=== PATIENT | male | born 1970 | race Hispanic/Latino ===

== ENCOUNTER 2017-05-26 21:31 | Emergency (ER) | payer SELFPAY ==
[~2017-05-26] VITALS: Ht 170.2 cm; Wt 70.9 kg
[~2017-05-26 21:31] MED LIST: AMOXICILLIN/PO500 MG PO; AMOXICILLIN500 MG PO; CLONIDINE0.1 MG PO; NO; NO HOME; ULTRAM50 M1 PO
[2017-05-26 22:09] LABS: HEMOGLOBIN 14.8 g/dl (14.0-18.0); IMMATURE GRANULOCYTES 0.3 % (0.0-1.0); MEAN CORPUSCULAR HGB 35.6 pG CALC (26.0-32.0); MEAN CORPUSCULAR HGB CONC 35.2 g/L CALC (32.0-36.0); NEUT# 1.79 thou/uL (1.82-7.42); RED BLOOD COUNT 4.16 mill/uL (4.70-6.10); RED CELL DISTRI WIDTH 13.2 % (11.5-15.5)
[2017-05-26 22:16] LABS: ALBUMIN 4.9 g/dL (3.2-5.0); ALKALINE PHOSPHATASE 111 u/l (38-126); ANION GAP 24 (6-22 (CALC)); BILIRUBIN, TOTAL 0.9 mg/dL (0.0-1.4); BUN 6 mg/dL (9-20); BUN/CREATININE RATIO 11 (12-20 (CALC)); CALCIUM 9.4 mg/dL (8.4-10.2); CARBON DIOXIDE 23 mmol/l (22-30); CHLORIDE 100 mmol/l (95-108); CREATININE 0.6 mg/dL (0.7-1.3); GFR > 60 ML/MIN (>=60 (CALC)); GFR FOR AFR.AMER. > 60 ML/MIN (>=60 (CALC)); GLUCOSE 89 mg/dL (75-110); POTASSIUM 4.1 mmol/l (3.5-5.1); SGOT/AST 185 u/l (17-59); SGPT/ALT 145 u/l (21-72); SODIUM 143 mmol/l (137-146); TOTAL PROTEIN 8.4 g/dL (6.3-8.2)
[2017-05-26 22:26] LABS: ETHYL ALCOHOL 409 mg/dl (0-30)
[2017-05-27 02:07] LABS: BARBITURATES NEGATIVE (NEGATIVE); COCAINE NEGATIVE (NEGATIVE); METHADONE NEGATIVE (NEGATIVE); OXCYCODONE NEGATIVE (NEGATIVE); TETRAHYDROCANNABIONOL NEGATIVE (NEGATIVE); TRICYLIC ANTIDEPRESSANTS NEGATIVE (NEGATIVE)
[2017-05-27 04:58] VITALS: BP 120/78
== END 2017-05-27 05:00 | DRG 897 ==
LOC: ED 21:31
PROVIDERS: Emergency Medicine
DX: F10.129 Alcohol abuse with intoxication, unspecified (principal); Y90.8 Blood alcohol level of 240 mg/100 ml or more

== ENCOUNTER 2020-04-28 10:55 | Emergency (ER) | payer SELFPAY ==
[~2020-04-28] VITALS: Ht 170.2 cm; Wt 72.0 kg
[2020-04-28] MEDS ORDERED: CYCLOBENZAPR5 MG PO (11:50)
[2020-04-28] MEDS ORDERED: NORVASC5 M1 PO (14:48)
[2020-04-28 15:37] VITALS: BP 208/131
== END 2020-04-28 15:45 | disposition home or self-care (01) | DRG 552 ==
LOC: ED 10:55
DX: M54.5 Low back pain (principal); I10 Essential (primary) hypertension; F17.210 Nicotine dependence, cigarettes, uncomplicated

== ENCOUNTER 2022-03-27 13:22 | Inpatient (IN) | payer OTHER ==
[~2022-03-27] VITALS: Ht 170.2 cm; Wt 68.0 kg
[2022-03-27] VITALS (35 sets, daily range): BP systolic 113–198; BP diastolic 81–165
[~2022-03-27 13:22] MED LIST changes: +CYCLOBENZAPR5 MG PO; +NORVASC5 M1 PO
--- NOTE | 2022-03-27 13:40 | NUR ---
PT TO ROOM WITH SO X1;
[2022-03-27 14:00] LABS: HEMATOCRIT 37.4 % (39.0-50.0); HEMOGLOBIN 12.9 g/dl (14.0-18.0); IMMATURE GRANULOCYTES 0.2 % (0.0-5.0); MEAN CELL VOLUME 98.2 fL CALC (80.0-100.0); MEAN CORPUSCULAR HGB 33.9 pG CALC (26.0-32.0); MEAN CORPUSCULAR HGB CONC 34.5 g/dL CAL (32.0-36.0); NEUT# 3.55 thou/uL (1.82-7.42); RED BLOOD COUNT 3.81 mill/uL (4.70-6.10); RED CELL DISTRI WIDTH 12.6 % (11.5-15.5)
[2022-03-27] MEDS ORDERED: LISINOPRIL10 MG PO (14:03)
--- NOTE | 2022-03-27 14:10 | NUR ---
PATIENT ALERT AND ORIENTED X3, DENIES ANY CURRENT HALLUCINATION. PATIENT IS COOPERATIVE, REPORTS HAVING PAIN TO CHEST DUE TO BEING TASED PRIOR TO ARRIVAL. NOTED TO HAVE PUNCTURE VILLALOBOS ON CHEST. OFFICER AT BEDSIDE
[2022-03-27 14:12] LABS: ALBUMIN 4.6 g/dL (3.2-5.0); ALKALINE PHOSPHATASE 82 u/l (38-126); BILIRUBIN, TOTAL 0.8 mg/dL (0.0-1.4); BUN 8 mg/dL (9-20); BUN/CREATININE RATIO 12 (12-20 (CALC)); CHLORIDE 94 mmol/l (95-108); CREATININE 0.7 mg/dL (0.7-1.3); ETHYL ALCOHOL 0 mg/dl (0-30); GFR FOR AFR.AMER. > 60 ML/MIN (>=60 (CALC)); GFR OTHER RACES > 60 ML/MIN (>=60 (CALC)); LIPASE 95 u/l (23-300); SGOT/AST 273 u/l (17-59); TOTAL PROTEIN 8.2 g/dL (6.3-8.2)
[2022-03-27 14:19] LABS: ANION GAP 22 (6-22 (CALC)); CARBON DIOXIDE 16 mmol/l (22-30); SODIUM 129 mmol/l (137-146)
--- NOTE | 2022-03-27 15:05 | NUR ---
PATIENT CLEANED OF LARGE INCONTINENCE
--- NOTE | 2022-03-27 15:20 | NUR ---
[facility] NURSE CALLS FOR UPDATED. INFORMED PATIENT IS NOT MEDICALLY CLEARED DUE TO RECEIVING LARGE DOSE OF VERSED AND ABNORMAL LABS
--- NOTE | 2022-03-27 15:29 | NUR ---
PATIENT SCREAMING AND YELLING STATING OFFICER IS ATTEMPTING TO HARM HIM. OFFICER HOLDING PATIENT DOWN, URINAL NOTED TO BE ON FLOOR WITH URINE POOLED ON FLOOR. OFFICER NOTED TO BE WET. OFFICER REPORTS PATIENT USED URINAL AND THEN PROCEED TO THROUGH URINAL AT HIM. AT BEDSIDE. VERBAL ORDERS TO GIVE VERSED IV 4 MG X2. NEW OFFICER AT BEDSIDE. PATIENT NOW RESTING WITH EYES CLOSED.
[2022-03-27 15:43] LABS: URINE BILIRUBIN - DIPSTICK NEGATIVE (NEGATIVE); URINE BLOOD DIPSTICK TRACE-INTACT (NEGATIVE); URINE COLOR YELLOW; URINE GLUCOSE - DIPSTICK 500 mg/dL (NEGATIVE); URINE KETONE NEGATIVE (NEGATIVE); URINE LEUK ESTERASE NEGATIVE (NEGATIVE); URINE PROTEIN - DIPSTICK NEGATIVE (NEG-TRACE); URINE SPECIFIC GRAVITY <=1.005; URINE UROBILINOGEN - DIPSTICK 0.2 E.U./dL (0.2)
--- NOTE | 2022-03-27 15:43 | NUR ---
PATIENT REPOSITIONED AND O2 APPLIED
[2022-03-27 15:45] LABS: URINE NITRITE - DIPSTICK NEGATIVE (Negative)
--- NOTE | 2022-03-27 16:00 | NUR ---
PATIENT PULLING OFF PULSE OX, PATIENT REORIENTED AND ASKED TO CEASE ACTION.
--- NOTE | 2022-03-27 16:32 | NUR ---
PATIENT REMOVED O2 MONITOR FROM FINGER, STATES "YOU SCARED THE SQUIDS AWARE." GIVEN URINAL PER SALOMÓN. REORIENTED TO SITUATION. OFFICER CONTINUES AT BEDSIDE.
--- NOTE | 2022-03-27 17:05 | NUR ---
PATIENT TOSSES URINE FILLED URINAL ON FLOOR. PATIENT REORTIENTED TO SITUATION AND CLEANED
--- NOTE | 2022-03-27 18:05 | NUR ---
pt received to ICU bed 2 via stretcher accompanied by A YASMANY Adams and DCS officer; transferred to bed; bedside report received
--- NOTE | 2022-03-27 18:15 | NUR ---
Admission Note Report Given to: YASMANY EASLEY Transported by: Wheelchair X Stretcher Transported with: X Nurse Transporter X Patent IV X O2 X Day [employer] Unit Leader Location: X ICU MS2 PATIENT TO ICU 3 ACCOMPANIED BY DCSO. BEDSIDE REPORT GIVEN, CARE RELINQUISHED
--- NOTE | 2022-03-27 18:20 | NUR ---
pt awake in bed; no apparent distress noted; admission assessment completed at this time; pt alert and oriented; denies pain; no n/v noted; resp even and unlabored; lungs clear; skin color wnl; ra; hr reg; strong pulses; no edema noted; sr on monitor; abd soft with bs present; no bm noted per gag writer; pt admits to voiding without complication; no urine to inspect at this time; urinal at bedside; #16 saline locked to rfa; #18 patent to lfa with ivf infusing without complication; no redness or edema noted at site; puncture wounds noted to upper abd/chest wall from taser used per rn manager department TRAVEL JOURNALIST to er; pt cuffed via bilat ankles and bilat wrist; osvaldo hose placed; plan of care/ meds explained; meal provided; call light within reach
--- NOTE | 2022-03-27 19:00 | NUR ---
BEDSIDE REPORT RECEIVED FROM Matthew AYALA RN. CARE OF PT ASSUMED AT THIS TIME. DINNER TRAY DELIVERED. PT HANDCUFFED IN BED WITH RICCARDO AT BEDSIDE.
--- NOTE | 2022-03-27 20:14 | NUR ---
DR. MEREDITH CALLED AND MADE AWARE PT IS HAVING VISUAL HALLUCINATIONS, PT STATED THEIR ARE "BIRDS AND KNIFES ON THE CEILING" AND PT HAS BECOME INCREASINGLY RESTLESS AND AGITATED AND HAS PULLED OFF MONITOR, PULLED OUT HIS IV SITES AND IS ATTEMPTING TO "REMOVE HIS SHACKLES AND HANDCUFFS". PT HAS ALREADY RECEIVED SCHEDULED LIBRIUM AND PRN ATIVAN DOSES, SEE E-MAR. ORDERS RECEIVED FOR ADDITIONAL ATIVAN IV DOSE AND AN INCREASE IN FREQUENCY TO SCHEDULED LIBRIUM AND PRN ATIVAN.
--- NOTE | 2022-03-27 21:07 | NUR ---
PT'S D/T SYMPTOMS ARE DR. SOLIMAN, ED PHYSICIAN AT BEDSIDE TO EVAL FOR INTUBATION. DR. SOLIMAN RECCOMENDS ATIVAN GTT INSTEAD OF INTUBATION. SPEAKS WITH DR. MEREDITH. DR. MEREDITH ORDERS ATIVAN GTT.
--- NOTE | 2022-03-27 23:00 | NUR ---
IV SITES X3 ESTABLISHED. L-FA 20G X1 ATTEMPT BY Nikki ESTRELLA RN L-FA 18G X1 ATTEMPT BY Nikki ESTRELLA RN L-AC 18G X 1 ATTEMPT BY Nikki MERLOS RN ORDER RECEIVED FOR YEUNG INSERTION BY DR. MEREDITH 18 FR. YEUNG INSERTED, ASEPTIC TECHNIQUE MAINTAINED.
--- NOTE | 2022-03-27 23:09 | NUR ---
ATIVAN GTT AT 8MG/HR AND PT REMAINS RESTLESS AND WITH SEVERE TREMOR. ORDER FOR INTUBATION RECEIVED. PT INTUBATED BY Nikki MALIK CRNA. ET 8.0 23cm AT THE LIP. SEE Nikki EATON CRNA PROGRESS NOTES. Glenda AMOS LOSS PREVENTION AND SAFETY MANAGER ASSISTED WITH INTUBATION. VERSED GTT INITIATED.
--- NOTE | 2022-03-27 23:55 | NUR ---
PCXR AT BEDSIDE FOR ET TUBE PLACEMENT VERIFICATION.
[2022-03-28] VITALS (97 sets, daily range): BP systolic 102–194; BP diastolic 69–125
--- NOTE | 2022-03-28 | NUR ---
PT SEEMINGLY NOT RESPONDING TO VERSED GTT, VERSED AT 10MG/H. PT IS HYPERTENSIVE AND RESTLESS. PROPOFOL GTT ORDERED.
--- NOTE | 2022-03-28 00:10 | NUR ---
CXR REPORT SHOWS ET TUBE IN SATISFACTORY POSITION.
--- NOTE | 2022-03-28 00:14 | NUR ---
B. AMOS GREEN ENERGY MARKETING ANALYST AT BEDSIDE COLLECTING ABG.
--- NOTE | 2022-03-28 00:25 | NUR ---
BED LINENS CHANGED
--- NOTE | 2022-03-28 00:55 | NUR ---
SPOKE WITH DR. MEREDITH, PROPOFOL AT 65mcg/kg/mIN AND VERSED 8mg/hr AND PT REMAINS COMBATIVE AND RESTLESS. NIBP 189/116mmHg. ALSO REPORTED SMALL AMOUNT OF BLOOD FROM OG TUBE. ORDER RECEIVED FOR FENTANYL 25mcg IV AND PROTONIX FOR GI PROPHYLAXIS. ORDER ALSO RECEIVED TO TURN TV DOWN TO 450. Glenda AMOS FRAME ALIGNER MADE AWARE.
--- NOTE | 2022-03-28 02:00 | NUR ---
PT SHOWS IMPROVEMENT AFTER DOSE OF FENTANYL, NIBP 112/75mmHg. PT NO LONGER EXHIBITS TREMORS OR RESTLESS BEHAVIOR. PT IS CALM, SEDATED, SR 70S. SPO2 100%. RR18/min. PROPOFOL DECRESED TO 60mcg/kg/min FROM 65, VERSED DECREASED TO 6MG/H
--- NOTE | 2022-03-28 02:28 | NUR ---
PROPOFOL DECREASED TO 5OMCG/KG/MIN AND VERSED TO 4MG/H. PT SEDATED, APPEARS COMFORTABLE AND IN NO DISTRESS.
--- NOTE | 2022-03-28 02:33 | NUR ---
B. AMOS NURSERY SUPERVISOR AT BEDSIDE.
--- NOTE | 2022-03-28 04:52 | NUR ---
ABG AND AM LABS COLLECTED BY Glenda AMOS RADIOLOGY TECHNICIAN. 1000ML CLEAR YELLOW URINE EMPTIED FROM YEUNG. 125ML RUST COLORED OUTPUT FROM OG. AM BEDSCALE WEIGHT 65.3 KG.
--- NOTE | 2022-03-28 04:56 | NUR ---
B. AMOS BARN BOSS DROPS FIO2 TO 25% BASED ON ABG RESULTS
[2022-03-28 05:27] LABS: HEMATOCRIT 36.4 % (39.0-50.0); IMMATURE GRANULOCYTES 0.3 % (0.0-5.0); MEAN CELL VOLUME 102.5 fL CALC (80.0-100.0); MEAN CORPUSCULAR HGB 33.8 pG CALC (26.0-32.0); NEUT# 2.13 thou/uL (1.82-7.42); RED BLOOD COUNT 3.55 mill/uL (4.70-6.10); RED CELL DISTRI WIDTH 13.1 % (11.5-15.5)
[2022-03-28 06:19] LABS: ALBUMIN 3.8 g/dL (3.2-5.0); ALKALINE PHOSPHATASE 60 u/l (38-126); BILIRUBIN, TOTAL 0.7 mg/dL (0.0-1.4); BUN 6 mg/dL (9-20); BUN/CREATININE RATIO 11 (12-20 (CALC)); CREATININE 0.5 mg/dL (0.7-1.3); GFR FOR AFR.AMER. > 60 ML/MIN (>=60 (CALC)); GFR OTHER RACES > 60 ML/MIN (>=60 (CALC)); MAGNESIUM 1.9 mg/dL (1.6-2.3); POTASSIUM 3.4 mmol/l (3.5-5.1); SGOT/AST 168 u/l (17-59); TOTAL PROTEIN 6.7 g/dL (6.3-8.2)
[2022-03-28 06:22] LABS: ANION GAP 12 (6-22 (CALC)); CARBON DIOXIDE 21 mmol/l (22-30); CHLORIDE 110 mmol/l (95-108); SODIUM 140 mmol/l (137-146)
--- NOTE | 2022-03-28 07:20 | NUR ---
pt intubated and sedated; no apparent distress noted; assessment completed at this time; perrla; yellowish, green drainage noted to eyes worse left eye; eye care/ face washed; no s/s/ facial grimaces of pain noted; no n/v noted; resp even and unlabored; lungs clear bilat; skin color wnl; vent intact and maintained with settings of AC mode, TV 450, rate 18, peep 5.0, 25% FiO2; 8.0 Fr ETT secured at the 23cm lip line; et sales to be replaced for proper oral care;o2 sat 100%; hr reg; strong pulses; no edema noted; bilat osvaldo hose intact; sb on monitor; abd soft with bs present; no bm noted per marketing underwriter; og tibe intact to LIS with brownish/red gastric output noted; placement verified; castro to gravity draining clear yellow urine; cath strap intact; #18 to lac with versed gtt, #18 to lfa with ivf, #20 to lfa with propofol gtt infusing without complication; no redness or edema noted at sites; pt repositioned to left side; plan of care/meds explained to pt and airline pilot/first officer; pt cuffed to bed via bilat ankles; will continue to monitor
--- NOTE | 2022-03-28 08:11 | NUR ---
pt intubated and sedated; no apparent distress noted; vent intact and maintained; castro to gravity; sb on monitor; officer x1 at bedside; pt remains cuffed bilat ankles to bed; will continue to monitor
--- NOTE | 2022-03-28 08:50 | NUR ---
Dr Mesa present at bedside to assess pt
--- NOTE | 2022-03-28 09:15 | NUR ---
ETT sales changed per RT at this time; oral care provided; will continue to monitor
--- NOTE | 2022-03-28 10:00 | NUR ---
intubated sedated; vent maintained; respositioned; castro to gravity; sb on monitor; guard at bedside; restraints intact; will continue to monitor
--- NOTE | 2022-03-28 12:10 | NUR ---
resting with eyes closed; facial grimaces noted; respositioned; sr on monitor; appears more restless/anxious; vent maintained; castro to gravity; iv's intact and patent; to be medicated with fentanyl; will continue to monitor
--- NOTE | 2022-03-28 13:14 | NUR ---
report/update provided to nurse Marie at [facility]
--- NOTE | 2022-03-28 14:07 | NUR ---
intubated and sedated; no apparent distress noted; vent intact and maintained; iv's intact and patent; versed at 4mg/hr; propofol at 50mcg/kg/min; no redness or edema noted at sites; sb on monitor; castro to gravity; repositioned to supine; guard at bedside; will continue to monitor
--- NOTE | 2022-03-28 16:05 | NUR ---
intubated and sedated; vent intact and maintained; no distress noted; resp even and unlabored; iv intact and patent; rass-4; propofol titrated to 45mcg/kg/min; sb on monitor; castro to gravity; repositioned to left side; oral care; officer at bedside; remains cuffed to foot of bed via bilat ankles; will continue to monitor
--- NOTE | 2022-03-28 18:00 | NUR ---
intubated and sedated; resp even and unlabored; vent maintained; castro to gravity; iv intact and patent; no redness or edema noted at sites; versed gtt at 40 mg/hr; propofol gtt at 45mcg/kg/min; facial grimacing noted; repositioned to right side; oral care provided; officer x1 at bedside
--- NOTE | 2022-03-28 19:00 | NUR ---
BEDSIDE REPORT RECEIVED FROM Matthew AYALA RN. CARE OF PT ASSUMED AT THIS TIME. PT IS INTUBATED, SEDATED, HEMODYNAMICS STABLE. RICCARDO AT BEDSIDE.
--- NOTE | 2022-03-28 20:00 | NUR ---
PHYSICAL ASSESMENT COMPLETED. SPO2 92-93% ON 02 @ 3L/M HUMIDIFIED VIA NC. SR70S ON MONITOR. RR 30. PT SOB WITH EXERTION. R-AC 20G PATENT. YEUNG SECURED TO LEG, TUBING UNKINKED AND UNOBSTRUCTED AND FLOWING TO GRAVITY WITH CLEAR YELLOW URINE DRAINING INTO BAG. TEMP 97.9. PT DENIES NEEDS AT THIS TIME. CALL MIN WITHIN REACH, AGREES TO CALL PRN. ISOLATION FOR COVID-19 MAINTAINED. BED LOCKED IN LOW POSITION WITH BEDRAILS UP X2.
--- NOTE | 2022-03-28 20:00 | NUR ---
PHYSICAL ASSESMENT COMPLETED. PT'S EYES ARE CRUSTED SHUT WITH DRY YELLOW DRAINAGE. EYES CLEANSED GENTLY WITH SALINE RINSE AND WETWASH CLOTH. ORAL CARE AND ORAL SUCTIONING COMPLETED. ET SUCTION DONE. MINIMAL CLEAR SECRETIONS. LUNGS ARE CLEAR. ETT REMAINS SECURED AT 23CM AT THE LIP. ASSIST CONTROL WITH A RR OF 18, PEEP 5, TV 450, FIO2 25%. OG SECURED. PLACEMENT VERIFIED VIA AIR BOLUS AUSCULTATION AND ASPIRATION OF STOMACH CONTENT. RECONNECTED TO LIS. PT HAS ACTIVE BOWEL SOUNDS. B/L WRIST RESTRAINTS IN PLACE AND B/L ANKLE SHACKLES IN PLACE. ALL EXTREMITIES WARM WITH GOOD CAP REFILL AND NO EDEMA. YEUNG SECURED TO LEG, TUBING UNKINKED AND UNOBSTRUCTED. DRAINING TO GRAVITY WITH BRIGHT YELLOW URINE. HUGO HOSE IN PLACE. PT IS DCSO INMATE AND RICCARDO REMAINS AT BEDSIDE. BED LOCKED IN LOW POSITION WITH BEDRAILS UP X2.
--- NOTE | 2022-03-28 20:44 | NUR ---
SPOKE WITH DR. MEREDITH REGARDING PT'S ELEVATED NIBP. CURRENTLY 170/118mmHg. NSR 70S ON SATURATOR OPERATOR. ORDER FOR PRN LABETALOL RECEIVED. SEE WRITTEN ORDER AND/OR E-MAR FOR PARAMETERS.
--- NOTE | 2022-03-28 21:07 | NUR ---
SCHEDULED MEDICATIONS ADMINISTERED. PRN LABETALOL 10MG IV ADMINISTERED. NIBP 186/125mmHg. SR 70S. SEE E-MAR.
--- NOTE | 2022-03-28 22:06 | NUR ---
NEW PROPOFOL BOTTLE INITIATED WITH TUBING CHANGE. SEE E-MAR.
--- NOTE | 2022-03-28 23:49 | NUR ---
LIBRIUM ADMINISTERED VIA OG. OGT CLAMPED/SUCTION OFF.
[2022-03-29] VITALS (98 sets, daily range): BP systolic 98–171; BP diastolic 71–118
--- NOTE | 2022-03-29 01:24 | NUR ---
B. AMOS SPECIAL EDUCATION ASSOCIATE AT BEDSIDE.
--- NOTE | 2022-03-29 03:19 | NUR ---
NEW BOTTLE OF PROPFOL INFUSING. SEE E-MAR. PT REMAINS SEDATED AND APPEARS COMFORTABLE. HEMODYNAMICS STABLE.
--- NOTE | 2022-03-29 05:30 | NUR ---
BED BATH AND LINEN CHANGE COMPLETED.
--- NOTE | 2022-03-29 05:32 | NUR ---
2,200 ML URINE EMPTIED FROM YEUNG. 50ML OUT FROM OG TUBE. AM LABS COLLECTED VIA VENIPUNCTURE. BEDSCALE WEIGHT 66.6 KG.
--- NOTE | 2022-03-29 05:40 | NUR ---
KATE COLLECTED BY Glenda AMOS RN.
--- NOTE | 2022-03-29 05:55 | NUR ---
PCXR IN ROOM.
[2022-03-29 06:22] LABS: HEMATOCRIT 38.7 % (39.0-50.0); HEMOGLOBIN 12.8 g/dl (14.0-18.0); IMMATURE GRANULOCYTES 0.1 % (0.0-5.0); MEAN CORPUSCULAR HGB 34.4 pG CALC (26.0-32.0); MEAN CORPUSCULAR HGB CONC 33.1 g/dL CAL (32.0-36.0); NEUT# 4.95 thou/uL (1.82-7.42); RED BLOOD COUNT 3.72 mill/uL (4.70-6.10); RED CELL DISTRI WIDTH 13.4 % (11.5-15.5)
[2022-03-29 07:05] LABS: ANION GAP 10 (6-22 (CALC)); BUN 2 mg/dL (9-20); BUN/CREATININE RATIO 4 (12-20 (CALC)); CARBON DIOXIDE 25 mmol/l (22-30); CHLORIDE 109 mmol/l (95-108); CREATININE 0.6 mg/dL (0.7-1.3); GFR FOR AFR.AMER. > 60 ML/MIN (>=60 (CALC)); GFR OTHER RACES > 60 ML/MIN (>=60 (CALC)); MAGNESIUM 1.8 mg/dL (1.6-2.3); POTASSIUM 3.8 mmol/l (3.5-5.1); SODIUM 141 mmol/l (137-146)
--- NOTE | 2022-03-29 07:24 | NUR ---
PT SEEN SEDATED AND INTUBATED, AT REST IN THE BED IN NO ACUTE DISTRESS. OFFICER X 1 AT BEDSIDE. PT APPROPRIATELY NOT RESPONSIVE. RESTRAINTS OFF FOR PASSIVE MOVEMENTS, RETIED. VERSED TURNED DOWN FROM 4 TO 3 MG/HR PT WELL SEDATED.
--- NOTE | 2022-03-29 10:09 | NUR ---
PT SEEN BY DR PEÑA THIS MORNING, ORDERS WEANING OF PROPOFOL AND VERSED. AT THIS POINT IN TIME VERSED IS OFF AND PROPOFOL IS AT 20 MKM. PT REMAINS UNRESPONSIVE TO VOICE AND TOUCH.
--- NOTE | 2022-03-29 12:42 | NUR ---
PT REMAINS SEDATED AND INTUBATED AFTER SHOWING EVIDENCE OF DELIRIUM TREMENS WHILE BEING WEANED FROM VERSED AND PROPOFOL. PROPOFOL IS AT 35 MKM, WHICH IS KEEPING PT MODERATELY SEDATED. NO FURTHER TREMORS NOTED.
--- NOTE | 2022-03-29 15:14 | NUR ---
PT REPOSITIONED IN BED, CONTINUES VENTED WITH PROPOFOL AT 35 MKM. NO TREMBLING SEEN WITH SEDATION AT THIS RATE.
--- NOTE | 2022-03-29 18:06 | NUR ---
PT AT 45 MKM PROPOFOL, LIGHTLY SEDATED. PT TURNED SIDE TO SIDE FOR SKIN PRESERVATION. OFFICER X 1 AT BEDSIDE.
--- NOTE | 2022-03-29 19:00 | NUR ---
BEDSIDE REPORT RECEIVED FROM Kwabena ESCALANTE RN. PT REMAINS SEDATED, INTUBATED, AND HEMODYNAMICALLY STABLE.
--- NOTE | 2022-03-29 20:00 | NUR ---
PHYSICAL ASSESMENT COMPLETED. ORAL CARE AND ORAL SUCTIONING PERFORMED. SECRETIONS ARE THICK AND PALE YELLOW, MODERATE AMOUNTS. PT TURNED/REPOSITIONED. B/L WRIST RESTRAINTS RELEASED FOR REPOSITIONING. PROPOFOL INFUSING AT 45mcg/kg/min. NO CHANGES AT THIS TIME. HEMODYNAMICS REMAINS STABLE.
--- NOTE | 2022-03-29 22:00 | NUR ---
RE-ASSESMENT COMPLETED. ASSESMENT REMAINS GROSSLY UNCHANGED. ORAL CARE AND ORAL SUCTIONING PERFORMED. SECRETIONS ARE THICK AND PALE YELLOW, MODERATE AMOUNTS. PT TURNED/REPOSITIONED. B/L WRIST RESTRAINTS RELEASED FOR REPOSITIONING. PROPOFOL INFUSING AT 45mcg/kg/min. NO CHANGES AT THIS TIME. HEMODYNAMICS REMAINS STABLE. RICCARDO REMAINS AT BEDSIDE.
[2022-03-30] VITALS (94 sets, daily range): BP systolic 112–171; BP diastolic 75–122
--- NOTE | 2022-03-30 04:00 | NUR ---
RE-ASSESMENT COMPLETED. ASSESMENT REMAINS GROSSLY UNCHANGED. ORAL CARE AND ORAL SUCTIONING PERFORMED. SECRETIONS ARE THICK AND PALE YELLOW, MODERATE AMOUNTS. PT TURNED/REPOSITIONED. B/L WRIST RESTRAINTS RELEASED FOR REPOSITIONING. PROPOFOL INFUSING AT 45mcg/kg/min. NO CHANGES AT THIS TIME. HEMODYNAMICS REMAINS STABLE. 1300ML GREEN TINGED URINE EMPTIED FROM YEUNG. 75ML TOTAL OUTPUT FROM OG. AM WEIGHT PER BEDSCALE 68KG. RICCARDO REMAINS AT BEDSIDE.
--- NOTE | 2022-03-30 04:06 | NUR ---
SIMEON ABG BY Glenda AMOS RRT.
--- NOTE | 2022-03-30 04:50 | NUR ---
AM LABS COLLECTEDD VIA VENIPUNCTURE.
--- NOTE | 2022-03-30 06:00 | NUR ---
RE-ASSESMENT COMPLETED. ASSESMENT REMAINS GROSSLY UNCHANGED. ORAL CARE AND ORAL SUCTIONING PERFORMED. SECRETIONS ARE THICK AND PALE YELLOW, MODERATE AMOUNTS. PT TURNED/REPOSITIONED. B/L WRIST RESTRAINTS RELEASED FOR REPOSITIONING. PROPOFOL INFUSING AT 45mcg/kg/min. NO CHANGES AT THIS TIME. HEMODYNAMICS REMAINS STABLE.
--- NOTE | 2022-03-30 06:03 | NUR ---
PCXR IN ROOM
[2022-03-30 07:00] LABS: HEMATOCRIT 42.8 % (39.0-50.0); HEMOGLOBIN 13.9 g/dl (14.0-18.0); MEAN CELL VOLUME 103.1 fL CALC (80.0-100.0); MEAN CORPUSCULAR HGB 33.5 pG CALC (26.0-32.0); MEAN CORPUSCULAR HGB CONC 32.5 g/dL CAL (32.0-36.0); RED BLOOD COUNT 4.15 mill/uL (4.70-6.10); RED CELL DISTRI WIDTH 13.5 % (11.5-15.5)
[2022-03-30 07:24] LABS: ALBUMIN 3.8 g/dL (3.2-5.0); ALKALINE PHOSPHATASE 75 u/l (38-126); ANION GAP 15 (6-22 (CALC)); BILIRUBIN, TOTAL 0.5 mg/dL (0.0-1.4); BUN 2 mg/dL (9-20); BUN/CREATININE RATIO 4 (12-20 (CALC)); CARBON DIOXIDE 24 mmol/l (22-30); CHLORIDE 104 mmol/l (95-108); CREATININE 0.6 mg/dL (0.7-1.3); GFR FOR AFR.AMER. > 60 ML/MIN (>=60 (CALC)); GFR OTHER RACES > 60 ML/MIN (>=60 (CALC)); MAGNESIUM 1.7 mg/dL (1.6-2.3); SGOT/AST 84 u/l (17-59); SODIUM 139 mmol/l (137-146)
--- NOTE | 2022-03-30 08:54 | NUR ---
PT WEANED DOWN FROM PROPOFOL, NOW SEEN ABLE TO RESPOND TO SIMPLE COMMANDS. RT AT BEDSIDE, WILL SEE HOW PT DOES IN TRIAL WEANING. OFFICER AT BEDSIDE.
--- NOTE | 2022-03-30 10:07 | NUR ---
PT HAS BEEN SUCCESSFULLY EXTUBATED, SEEN BREATHING ON HIS OWN WITH SATS IN THE UPPER 90s. NO DISTRESS, NO TREMBLING YESTERDAY.
--- NOTE | 2022-03-30 12:19 | NUR ---
PT REMAINS AT REST IN THE BED AFTER EXTUBATION, DROWSY. SWALLOW TEST DONE BY ERNESTO, MECHANICAL SOFT DIET ORDERED.
--- NOTE | 2022-03-30 15:30 | NUR ---
PT MORE AWAKE BUT STILL DROWSY. PT DID NOT WANT TO EAT LUNCH, BUT DID SWALLOW SOME WATER. NO DISTRESS, NO AGITATION, NO TREMORS.
--- NOTE | 2022-03-30 20:00 | NUR ---
PATIENT LAYING IN BED WITH OFFICER AT BEDSIDE. PATIENT ALERT AND ORIENTED X [address]. PATIENT DENIES ANY PAIN AND OR NEEDS AT THIS TIME. PATIENT PRESENTS WITH NO EDEMA AND SCHAKLES ARE ON BILATERAL ANKLES WITHOUT ANY BLOOD FLOW. PATIENT HAS A YEUNG CATH AT THIS TIME WITH CLEAR YELLOW URINE DRAINING AT THIS TIME. CIWA SCALE IS A "0" AT THIS TIME. SIDERAILS ARE UP X 2 CALL LIGHT IS WITHIN REACH. CAE ENGINEER SHOWING SR AT 96
[2022-03-31] VITALS (40 sets, daily range): BP systolic 134–205; BP diastolic 100–151
--- NOTE | 2022-03-31 | NUR ---
PATIENT LAYING IN BED AT THIS TIME. PATIENT DENIES ANY NEEDS. CIWA SCORE REMAINS "0" AT THIS TIME. PATIENT ON ROOM AIR AND PIPELINE GANG SUPERVISOR READING SINUS RHYTHM AT HR OF 72 AND SPO2 IS 99%. GUARD REMAINS AT BEDSIDE AND PATIENT REMAINS SCHACKLED TO BED BY BILATERAL ANKLES. YEUNG CATH PATENT AND HAS SOME LIGHT PINK COLOR URINE IN TUBING DUE TO PATIENT PULLING ON CATH. PATIENT REMINDED NOT TO PULL ON CATH. SIDERAILS ARE UP X 2 CALL LIGHT WITHIN REACH.
--- NOTE | 2022-03-31 02:05 | NUR ---
PATIENT LAYING AWAKE IN BED AT THIS TIME PATIENT DRINKING WATER BUT WHEN OFFERED SOMETHING TO EAT PATIENT NEED FOR FOOD AT THIS TIME. PATIENT LINE REPAIRER AT THIS TIME SI CURRENTLY READING SINUS RHYTHM AND HR 81. PATIENT REMAINS SCHACKLED TO BED BY BILATERAL ANKLES. NO BLOOD FLOW IMPEDMENT NOTED. PATIENT YEUNG REMAINS PATENT AND IS PINK TINGED AT THIS TIME. WILL CONTINUE TO MONITOR.
--- NOTE | 2022-03-31 06:05 | NUR ---
LINHN LAYING IN BED AWAKE AT THIS TIME. MACHINE SEWER READING SR AND HR IS 72 BP IS CURRENLTY 166/114 PATIENT ALERT TO NAME AND PLACE. PATINET IS SHACKELED TO BED BY RIGHT WRIST AND LEFT ANKLE. NO ISSUES WITH BLOOD FLOW TO LIMBS AT THIS TIME. SIDERAILS ARE UP CALL LIGHT WITHIN REACH GUARD IS AT BEDSIDE AT THIS TIME.
[2022-03-31 06:57] LABS: HEMATOCRIT 42.3 % (39.0-50.0); HEMOGLOBIN 14.5 g/dl (14.0-18.0); MEAN CELL VOLUME 99.3 fL CALC (80.0-100.0); MEAN CORPUSCULAR HGB CONC 34.3 g/dL CAL (32.0-36.0); RED BLOOD COUNT 4.26 mill/uL (4.70-6.10)
[2022-03-31 07:16] LABS: ALBUMIN 4.1 g/dL (3.2-5.0); ALKALINE PHOSPHATASE 80 u/l (38-126); ANION GAP 17 (6-22 (CALC)); BUN 4 mg/dL (9-20); BUN/CREATININE RATIO 7 (12-20 (CALC)); CARBON DIOXIDE 22 mmol/l (22-30); CHLORIDE 104 mmol/l (95-108); CREATININE 0.6 mg/dL (0.7-1.3); GFR FOR AFR.AMER. > 60 ML/MIN (>=60 (CALC)); GFR OTHER RACES > 60 ML/MIN (>=60 (CALC)); MAGNESIUM 1.6 mg/dL (1.6-2.3); POTASSIUM 4.2 mmol/l (3.5-5.1); SGOT/AST 61 u/l (17-59); SODIUM 139 mmol/l (137-146); TOTAL PROTEIN 7.5 g/dL (6.3-8.2)
[2022-03-31 07:22] LABS: BILIRUBIN, TOTAL 0.9 mg/dL (0.0-1.4)
[2022-03-31] MEDS ORDERED: LISINOPRIL10 MG PO (09:00)
[2022-03-31] MEDS ORDERED: ERYTHROMYCIN O3.5 GM OD (09:00)
[2022-03-31] MEDS ORDERED: PROTONIX40 M2 PO (09:00)
[2022-03-31] MEDS ORDERED: B-1100 MG PO (09:00)
--- NOTE | 2022-03-31 09:10 | NUR ---
PT SEEN BY DR PEÑA THIS MORNING. YEUNG CATHETER REMOVED WITH ALMOST IMMEDIATE VOIDING OF 700 ML LEO URINE.
--- NOTE | 2022-03-31 10:52 | NUR ---
PT OKAYED FOR DISCHARGE BY DR PEÑA. RICCARDO PROVIDED DISCHARGE PAPERWORK AND PRESCRIPTIONS FOR PT. PT TAKEN BY WHEELCHAIR TO VEHICLE.
== END 2022-03-31 10:00 | DRG 897 ==
LOC: ED 13:22 → ED-I 15:00 → ED 15:39 → ICU 15:40
PROVIDERS: Family Medicine; Internal Medicine; ADMIT Internal Medicine; ATTEND Internal Medicine
PROC: 0BH17EZ Insertion of Endotracheal Airway into Trachea, Via Natural or Artificial Opening (ICD-10-PCS; principal; 2022-03-27)
PROC: 5A1945Z Respiratory Ventilation, 24-96 Consecutive Hours (ICD-10-PCS; 2022-03-27)
PROC: 0T9B70Z Drainage of Bladder with Drainage Device, Via Natural or Artificial Opening (ICD-10-PCS; 2022-03-27)
DX: F10.231 Alcohol dependence with withdrawal delirium (principal); E87.0 Hyperosmolality and hypernatremia; E87.6 Hypokalemia; I10 Essential (primary) hypertension; F17.210 Nicotine dependence, cigarettes, uncomplicated; Z78.1 Physical restraint status; Z20.822 Contact with and (suspected) exposure to COVID-19
CPT/HCPCS: J1650; J2060; J2250; J3475; S0164; S0166

== ENCOUNTER 2022-06-29 18:58 | Emergency (ER) | payer SELFPAY ==
[~2022-06-29] VITALS: Ht 170.2 cm; Wt 71.0 kg
[~2022-06-29 18:58] MED LIST changes: +B-1100 MG PO; +ERYTHROMYCIN O3.5 GM OD; +LISINOPRIL10 MG PO; +PROTONIX40 M2 PO
[2022-06-29 19:24] VITALS: BP 158/110
[2022-06-29 19:30] VITALS: BP 157/111
[2022-06-29 19:45] VITALS: BP 142/102
[2022-06-29 20:00] VITALS: BP 161/115
[2022-06-29 20:15] VITALS: BP 158/103
== END 2022-06-29 20:30 | disposition home or self-care (01) | DRG 605 ==
LOC: ED 18:58
DX: S81.812A Laceration without foreign body, left lower leg, initial encounter (principal); F10.131 Alcohol abuse with withdrawal delirium; I10 Essential (primary) hypertension; F10.129 Alcohol abuse with intoxication, unspecified; F17.200 Nicotine dependence, unspecified, uncomplicated; W26.8XXA Contact with other sharp object(s), not elsewhere classified, initial encounter; Z91.14 Patient's other noncompliance with medication regimen

== ENCOUNTER 2022-07-01 11:35 | Emergency (ER) | payer SELFPAY ==
[~2022-07-01] VITALS: Ht 170.2 cm; Wt 77.0 kg
[2022-07-01 11:45] VITALS: BP 173/118
[2022-07-01 12:00] VITALS: BP 139/95
[2022-07-01 12:15] VITALS: BP 139/95
== END 2022-07-01 12:21 | disposition home or self-care (01) | DRG 950 ==
LOC: ED 11:35
DX: S81.812D Laceration without foreign body, left lower leg, subsequent encounter (principal); I10 Essential (primary) hypertension; F10.10 Alcohol abuse, uncomplicated; F17.200 Nicotine dependence, unspecified, uncomplicated; X58.XXXD Exposure to other specified factors, subsequent encounter

== ENCOUNTER 2024-08-12 11:07 | Emergency (ER) | payer OTHER ==
[2024-08-12] VITALS (14 sets, daily range): BP systolic 129–220; BP diastolic 96–127
[~2024-08-12] VITALS: Ht 167.6 cm; Wt 68.0 kg
[~2024-08-12 11:07] MED LIST changes: +BACTRIM DS1 TAB PO
[2024-08-12] MEDS ORDERED: ONDANSETRON HCl 4 MG/2 ML SDV IV STA (11:42)
[2024-08-12] MEDS ORDERED: SODIUM CHLORIDE 0.9% 1,000 ML IV STA (11:42)
[2024-08-12] MEDS ORDERED: Pantoprazole Sodium 40 MG VIAL (Protonix) IV STA (11:42)
[2024-08-12 12:06] LABS: CREATININE 0.7 mg/dL (0.7-1.3); POTASSIUM 3.6 mmol/l (3.5-5.1)
[2024-08-12 12:10] LABS: URINE BLOOD DIPSTICK Small (NEGATIVE); URINE COLOR Yellow; URINE GLUCOSE - DIPSTICK 100 mg/dL (NEGATIVE); URINE KETONE 40 mg/dL (NEGATIVE); URINE LEUK ESTERASE Negative (NEGATIVE); URINE NITRITE - DIPSTICK Negative (Negative); URINE PH 7.5 (4.5-8.0); URINE PROTEIN - DIPSTICK >=300 mg/dL (NEG-TRACE); URINE SPECIFIC GRAVITY 1.025; URINE UROBILINOGEN - DIPSTICK >=8.0 E.U./dL (0.2)
[2024-08-12 12:11] LABS: URINE EPITHELIAL CELLS FEW EPI/hpf (0-FEW); URINE MUCUS MODERATE hpf (NONE-FEW)
[2024-08-12 12:15] LABS: ALBUMIN 5.4 g/dL (3.2-5.0); BILIRUBIN, TOTAL 1.6 mg/dL (0.2-1.3); TOTAL PROTEIN 9.7 g/dL (6.3-8.2)
[2024-08-12 12:17] LABS: BASO% 0.8 % (0-3); EOS% 0.3 % (0-8); HEMOGLOBIN 15.1 g/dl (14.0-18.0); IMMATURE GRANULOCYTES 0.3 % (0.0-5.0); LYMPH% 12.7 % (15-41); MEAN CELL VOLUME 100.7 fL CALC (80.0-100.0); MEAN CORPUSCULAR HGB 34.6 pG CALC (26.0-32.0); MEAN CORPUSCULAR HGB CONC 34.3 g/dL CAL (32.0-36.0); MONO% 10.2 % (2-13); NEUT# 2.75 thou/uL (1.82-7.42); NEUT% 75.7 % (42-76); RED BLOOD COUNT 4.37 mill/uL (4.70-6.10); RED CELL DISTRI WIDTH 14.1 % (11.5-15.5)
[2024-08-12] MEDS ORDERED: cloNIDine HCL 0.1 MG/TAB PO ONE (14:10)
[2024-08-12] MEDS ORDERED: ZESTRIL5 M1 PO (15:50)
== END 2024-08-12 15:59 | disposition home or self-care (01) | DRG 392 ==
LOC: ED 11:07
PROVIDERS: Emergency Medicine
DX: K52.9 Noninfective gastroenteritis and colitis, unspecified (principal); K75.9 Inflammatory liver disease, unspecified; I10 Essential (primary) hypertension; T46.5X6A Underdosing of other antihypertensive drugs, initial encounter; F17.200 Nicotine dependence, unspecified, uncomplicated; Z91.128 Patient's intentional underdosing of medication regimen for other reason; Z20.822 Contact with and (suspected) exposure to COVID-19
CPT/HCPCS: J2405; J2470